=== PATIENT | male | born 1955 | race Caucasian/White ===

== ENCOUNTER 2024-01-08 13:12 | Emergency (ER) | payer MEDICARE ==
[2024-01-08 13:41] VITALS: TEMP 97.9
--- NOTE | 2024-01-08 13:43 | ED ---
Neuro HPI - General Source: patient, RN notes reviewed Mode of arrival: ambulatory Limitations: no limitations <Lili Mcclure - Last Filed: 01/08/24 13:41> - General Source: patient, RN notes reviewed, old records reviewed - History of Present Illness Is the patient presenting with stroke symptoms?: Yes Last Known Well Date: 01/06/24 <Neeraj Jackman - Last Filed: 01/08/24 22:02> - General Chief Complaint: Neuro Symptoms/Deficit Stated Complaint: Numbness in L hand Time Seen by Provider: 01/08/24 13:30 - History of Present Illness Initial Comments: Quick noteis a 68-year-old male presents emergency department chief complaint of left hand paresthesias and decreased muscle strength. Patient states that symptoms started yesterday at 8 AM after he woke up. Patient states that he flew home from [place] yesterday as well. He denies changes in vision, chest pain or pressure, dizziness, lightheadedness, shortness of breath, neck pain or discomfort. (Lili Mcclure) Patient is a 68-year-old male who presents emergency department for left hand complaints. Patient presents after recently getting off an airplane after being in out of town for the last few days. States he awoke yesterday morning with weakness and numbness on the palmar aspect of his left hand radiating into the third through fifth digits only on the palmar aspect. Maybe a little weakness in the forearm but mostly in the wrist and the hand. He has noticed it got worse today. Presents for further evaluation. Found to be hypertensive with systolics over 220 in triage. Denies any headache or blurry vision. Denies any abdominal pain or chest pain. Denies any obvious injury however states he did fall on outstretched hand few weeks ago and then also slept on the airplane in a fully flexed position in his hand and fully flexed position on his elbow. No history of this injury in the past. Presents for further evaluation at this time. (Neeraj Jackman) - Related Data Home Medications: Previous Rx's Medication Instructions Recorded amLODIPine [Norvasc] 2.5 mg PO DAILY 21 Days #21 tablet 01/08/24 Allergies/Adverse Reactions: Allergies Allergy/AdvReac Type Severity Reaction Status Date / Time No Known Allergies Allergy Verified 01/08/24 13:16 Review of Systems ROS Other: All systems not noted in ROS Statement are negative. <Lili Mcclure - Last Filed: 01/08/24 13:41> ROS Other: All systems not noted in ROS Statement are negative. <Neeraj Jackman - Last Filed: 01/08/24 22:02> ROS Statement: Those systems with pertinent positive or pertinent negative responses have been documented in the HPI. Review of Systems: CONST: Denies fever EYES: Denies blurry vision ENT: Denies nasal congestion C/V: Denies Chest pain RESP: Denies shortness of breath GI: Denies abdominal pain : Denies dysuria SKIN: Denies rash. MSK: Endorses left hand weakness and numbness. NEURO: Denies headache (Neeraj Jackman) General Exam Limitations: no limitations <Lili Mcclure - Last Filed: 01/08/24 13:41> <Neeraj Jackman - Last Filed: 01/08/24 22:02> - General Exam Comments Initial Comments: Visual Physical Exam Vital signs reviewed General: Well-appearing, nontoxic, no acute distress. Head: Normocephalic, atraumatic Eyes: PERRLA, EOMI ENT: Airway patent Chest: Nonlabored breathing Skin: No visual rash, normal skin tone Neuro: Alert and oriented 3 Musculoskeletal: No gross abnormalities (Lili Mcclure) General: Appears in no acute distress. HEAD: Normal with no signs of head trauma. EYES: PERRLA, EOMI, conjunctiva normal, no discharge. Pupils are 3 mm and equal bilaterally. ENT: Hearing grossly intact, normal oropharynx. RESPIRATORY: Clear breath sounds bilaterally. No wheezes, rales, or rhonchi. C/V: Regular rate and rhythm. S1 and S2 auscultated, no edema, peripheral pulses 2+ and intact throughout ABD: Abd is soft, nontender, nondistended EXT: Normal range of motion, no obvious deformity SKIN: No rashes or lesions observed on exposed skin. NEURO: Alert and oriented x 4. Cranial nerves II through XII are intact. NIH technically is a 1 for weakness in transmission and coordination engineer strength for the left hand however it is all isolated to the hand region and seems to be more of a peripheral neuropathy than central neuropathy as it is in the median/ulnar distribution. Last known well was 2 days ago. (Neeraj Jackman) Stroke MDM <Lili Mcclure - Last Filed: 01/08/24 13:41> - Lab Data Result diagrams: 01/08/24 14:26 01/08/24 14:26 - EKG Data -: EKG Interpreted by Me <Neeraj Jackman - Last Filed: 01/08/24 22:02> - Lab Data Lab Results 01/08/24 01/08/24 01/08/24 Range/Units 14:26 14:26 14:26 WBC 7.4 (3.8-10.6) k/uL RBC 4.87 (4.30-5.90) m/uL Hgb 15.3 (13.0-17.5) gm/dL Hct 46.1 (39.0-53.0) % MCV 94.7 (80.0-100.0) fL MCH 31.3 (25.0-35.0) pg MCHC 33.1 (31.0-37.0) g/dL RDW 13.1 (11.5-15.5) % Plt Count 219 (150-450) k/uL MPV 7.7 Neutrophils % 74 % Lymphocytes % 16 % Monocytes % 7 % Eosinophils % 1 % Basophils % 1 % Neutrophils # 5.5 (1.3-7.7) k/uL Lymphocytes # 1.2 (1.0-4.8) k/uL Monocytes # 0.5 (0-1.0) k/uL Eosinophils # 0.1 (0-0.7) k/uL Basophils # 0.1 (0-0.2) k/uL PT 10.4 (10.0-12.5) sec INR 0.9 (<1.2) APTT 23.4 (22.0-30.0) sec Sodium 140 (137-145) mmol/L Potassium 4.4 (3.5-5.1) mmol/L Chloride 109 H (98-107) mmol/L Carbon Dioxide 26 (22-30) mmol/L Anion Gap 5 mmol/L BUN 15 (9-20) mg/dL Creatinine 1.15 (0.66-1.25) mg/dL Est GFR (CKD-EPI)AfAm 75 (>60 ml/min/1.73 sqM) Est GFR (CKD-EPI)NonAf 65 (>60 ml/min/1.73 sqM) Glucose 95 (74-99) mg/dL Calcium 8.8 (8.4-10.2) mg/dL Total Bilirubin 0.6 (0.2-1.3) mg/dL AST 23 (17-59) U/L ALT 31 (4-49) U/L Alkaline Phosphatase 79 (38-126) U/L Total Protein 6.7 (6.3-8.2) g/dL Albumin 4.0 (3.5-5.0) g/dL - Medical Decision Making I completed the quick note portion of this chart signed Lili Mcclure PA-C (Lili Mcclure) Was pt. sent in by a medical professional or institution (MELVI Wood, STAYING MACHINE OPERATOR, urgent care, hospital, or senior living...) When possible be specific @ -No Did you speak to anyone other than the patient for history (EMS, parent, family, police, friend...)? What history was obtained from this source @ -No Did you review nursing and triage notes (agree or disagree)? Why? @ -I reviewed and agree with nursing and triage notes Were old charts reviewed (outside hosp., previous admission, EMS record, old EKG, old radiological studies, urgent care reports/EKG's, senior living records)? Report findings @ -No old charts were reviewed Differential Diagnosis (chest pain, altered mental status, abdominal pain women, abdominal pain men, vaginal bleeding, weakness, fever, dyspnea, syncope, headache, dizziness, GI bleed, back pain, seizure, CVA, palpatations, mental health, musculoskeletal)? @ -Peripheral neuropathy, CVA, left wrist injury, uncontrolled hypertension. This list is not all inclusive. EKG interpreted by me (3pts min.). @ -As above X-rays interpreted by me (1pt min.). @ -X-rays of the elbow, hand, wrist unremarkable for any obvious injury. CT interpreted by me (1pt min.). @ -CT brain unremarkable. No evidence of acute intracranial process. U/S interpreted by me (1pt. min.). @ -None done What testing was considered but not performed or refused? (CT, X-rays, U/S, labs)? Why? @ -None What meds were considered but not given or refused? Why? @ -None Did you discuss the management of the patient with other professionals ( professionals i.e. , PA, STAYING MACHINE OPERATOR, lab, RT, psych nurse, social services aide, filling and packing supervisor, teacher, legal compliance officer, geriatric case manager)? Give summary @ -No Was smoking cessation discussed for >3mins.? @ -No Was critical care preformed (if so, how long)? @ -No Were there social determinants of health that impacted care today? How? (Homelessness, low income, unemployed, alcoholism, drug addiction, transportation, low edu. Level, literacy, decrease access to med. care, halfway, rehab)? @ -No Was there de-escalation of care discussed even if they declined (Discuss DNR or withdrawal of care, Hospice)? DNR status @ -No What co-morbidities impacted this encounter? (DM, HTN, Smoking, COPD, CAD, Cancer, CVA, ARF, Chemo, Hep., AIDS, mental health diagnosis, sleep apnea, morbid obesity)? @ -Uncontrolled hypertension Was patient admitted / discharged? Hospital course, mention meds given and route, prescriptions, significant lab abnormalities, going to OR and other pertinent info. @ -Based on patient's presentation and physical exam, presents emergency department with primarily left hand complaints. Seems to be a peripheral neuropathy however patient is hypertensive with systolics over 220 that is uncontrolled. Had recent travel as well. I did discuss with the patient and we will obtain CT brain as well as x-rays of the left arm to look for any obvious source of peripheral neuropathy at this time. Basic labs will also be obtained. EKG will be obtained. Patient be given a dose of IV hydralazine for his blood pressure. He was in agreement this plan. Technically, patient has an NIH of 0-1 for the left hand findings however symptoms have been ongoing for over 24 hours. Last known well was on Tuesday. Patient is not a tenecteplase candidate as risks for outweigh the benefits. Also more than likely this is a peripheral neuropathy. X-rays unremarkable. CT unremarkable. Laboratory studies within acceptable limits. EKG within normal limits. Discussed results with the patient. Appears he likely has a median neuropathy as he does have "hand of benediction." As we do not have a splint for carpal tunnel, patient was given an Martinez bandage. Repeat blood pressure after hydralazine is improved to 160/82. We discussed his results. He will go home with instructions to obtain a splint, follow-up with his PCP, he will take the Norvasc prescription I will provide him for his blood pressure and monitor it at home. He was in agreement this plan. Strict return precautions discussed. I will provide the patient with a prescription for Norvasc. I instructed the patient to follow up with their PCP in the next 1-3 days. I provided contact information for follow up with PCP. I explained that the patient should return to the emergency department if they experience any worsening symptoms. Strict return precautions were discussed with the patient. The patient expressed understanding of these instructions. I answered all questions that the patient had. The patient was discharged home in good condition with their prescriptions and follow up information. Undiagnosed new problem with uncertain prognosis? @ -No Drug Therapy requiring intensive monitoring for toxicity (Heparin, Nitro, Insulin, Cardizem)? @ -No Were any procedures done? @ -No Diagnosis/symptom? @ -Median nerve dysfunction/palsy, carpal tunnel, hypertension Acute, or Chronic, or Acute on Chronic? @ -Acute Uncomplicated (without systemic symptoms) or Complicated (systemic symptoms)? @ -Uncomplicated Side effects of treatment? @ -None Exacerbation, Progression, or Severe Exacerbation] @ -No Poses a threat to life or bodily function? @ -Yes, if hypertension is not controlled. Prescribed a antihypertensive with strict return precautions and follow-up instructions to obtain better control of his blood pressure. (Neeraj Jackman) 01/08/24 14:52 12-lead Electrocardiogram Interpretation Note EKG was reviewed and interpreted by myself. 12-lead ECG performed at 1426 is interpreted by me as revealing normal sinus rhythm at a rate of 62 beats per minute. Star is normal. IL interval is 107 ms, QRS durations 90 ms, QTc is 416 ms. There were no ST or T wave abnormalities to suggest myocardial ischemia or injury. R wave progression across the precordium was satisfactory. By my interpretation this EKG is non-diagnostic for acute ischemia. (Neeraj Jackman) Past Medical History Past Medical History: Hypertension History of Any Multi-Drug Resistant Organisms: None Reported Past Surgical History: No Surgical Hx Reported Past Psychological History: No Psychological Hx Reported Smoking Status: Never smoker Past Alcohol Use History: None Reported Past Drug Use History: None Reported <Lili Mcclure - Last Filed: 01/08/24 13:41> Course Vital Signs 01/08/24 01/08/24 01/08/24 13:13 14:38 17:16 Temperature 97.9 F Pulse Rate 79 74 Respiratory 20 18 Rate Blood Pressure 221/80 201/62 160/82 O2 Sat by Pulse 98 99 Oximetry Disposition <Lili Mcclure - Last Filed: 01/08/24 13:41> Is patient prescribed a controlled substance at d/c from ED?: No Time of Disposition: 16:15 <Neeraj Jackman - Last Filed: 01/08/24 22:02> Clinical Impression: Carpal tunnel syndrome, Median nerve dysfunction, Hypertension Disposition: HOME SELF-CARE Condition: Good Instructions (If sedation given, give patient instructions): Peripheral Neuropathy (ED), Paresthesia (ED) Prescriptions: amLODIPine [Norvasc] 2.5 mg PO DAILY 21 Days #21 tablet Referrals: None,Stated [Primary Care Provider] - 1-2 days Jam Jain MD [STAFF PHYSICIAN] - 1-2 days
[2024-01-08] MEDS: hydrALAZINE HCL 20 MG/ML 1 ML VIAL IVP STA (14:29)
[2024-01-08 14:41] LABS: Basophils # (A) 0.1 k/uL (0-0.2); Basophils % (A) 1 %; Eosinophils # (A) 0.1 k/uL (0-0.7); Eosinophils % (A) 1 %; HCT 46.1 % (39.0-53.0); HGB 15.3 gm/dL (13.0-17.5); Lymphocytes # (A) 1.2 k/uL (1.0-4.8); Lymphocytes % (A) 16 %; MCH 31.3 pg (25.0-35.0); MCHC 33.1 g/dL (31.0-37.0); MCV 94.7 fL (80.0-100.0); Mean Platelet Volume 7.7; Monocytes # (A) 0.5 k/uL (0-1.0); Monocytes % (A) 7 %; Neutrophils # (A) 5.5 k/uL (1.3-7.7); Neutrophils % (A) 74 %; Platelet Count 219 k/uL (150-450); RBC 4.87 m/uL (4.30-5.90); RDW 13.1 % (11.5-15.5); WBC 7.4 k/uL (3.8-10.6)
--- NOTE | 2024-01-08 14:46 | XR ---
Left wrist: HISTORY: Paresthesias. COMPARISON: None TECHNIQUE: 4 views of the left wrist are obtained. FINDINGS: There is no fracture, dislocation, intraosseous or intra-articular abnormality of the left wrist. The soft tissues are normal. IMPRESSION: No significant abnormality seen.
--- NOTE | 2024-01-08 14:48 | XR ---
Left hand. HISTORY: Paresthesias. COMPARISON: None. TECHNIQUE: 3 views left hand were obtained. FINDINGS: There is no fracture, dislocation or focal intraosseous abnormality. There is mild to moderate osteoarthritic change of the first MCP joint and interphalangeal joint of the thumb where there is [id number] joint space narrowing, subchondral sclerosis and hypertroph ic spurring.. Remaining articulations are unremarkable. There are no soft tissue abnormalities. 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
--- NOTE | 2024-01-08 14:50 | XR ---
Left elbow. HISTORY: Suspect ulnar nerve injury. COMPARISON: None. TECHNIQUE: 2 views left elbow were obtained. FINDINGS: There is no fracture, dislocation, intraosseous, intra-articular or soft tissue abnormality. There is no joint effusion. IMPRESSION: No significant abnormality seen.
[2024-01-08 14:58] LABS: INR 0.9 (<1.2); Partial Thromboplastin Time 23.4 sec (22.0-30.0); Prothrombin Time 10.4 sec (10.0-12.5)
[2024-01-08 15:07] LABS: ALT 31 U/L (4-49); AST 23 U/L (17-59); African American GFR (CKD) 75 (>60 ml/min/1.73 sqM); Alkaline Phosphatase 79 U/L (38-126); Anion Gap 5 mmol/L; Blood Urea Nitrogen 15 mg/dL (9-20); Calcium 8.8 mg/dL (8.4-10.2); Carbon Dioxide 26 mmol/L (22-30); Chloride 109 mmol/L (98-107); Glucose 95 mg/dL (74-99); Non-African American GFR(CKD) 65 (>60 ml/min/1.73 sqM); Potassium 4.4 mmol/L (3.5-5.1); Sodium 140 mmol/L (137-145); Total Bilirubin 0.6 mg/dL (0.2-1.3); Total Protein 6.7 g/dL (6.3-8.2)
--- NOTE | 2024-01-08 15:41 | CT ---
EXAMINATION TYPE: CT brain wo con DATE OF EXAM: 01/08/2024 COMPARISON: None HISTORY: LEFT ARM NUMBNESS CT DLP: 1168.1 mGycm Automated exposure control for dose reduction was used. Findings: The ventricles, basal cisterns and sulci over the convexities are within normal limits and there is n o mass effect or shift of midline structures. No abnormal density is seen throughout the brain parenchyma and there is no acute intra or extra-axia l hemorrhage. The posterior fossa including the brainstem, fourth ventricle and cerebellar pontine angles appear no rmal. Intraorbital contents appear normal and symmetric. There is mild chronic inflammatory changes in the left maxillary sinus. The mastoid air cells are wel l aerated. The calvarium is intact. IMPRESSION: No significant abnormality seen. There is no acute bleed or mass effect.
[2024-01-08 17:35] VITALS: BP 160/82; PULSE 74; RESP 18
== END 2024-01-08 17:17 | disposition home or self-care (01) ==
LOC: EC 13:12
DX: G56.00 Carpal tunnel syndrome, unspecified upper limb (principal); I10 Essential (primary) hypertension; G96.9 Disorder of central nervous system, unspecified
CPT/HCPCS: 36415; 93005; 80053; 85025; 85610; 85730; 73070; 73110; 73130; 70450; 99284; 96374; J0360